=== PATIENT | female | born 1975 | race Two or more races ===

== ENCOUNTER 2022-02-21 00:22 | Emergency (ER) | payer OTHER ==
[~2022-02-21] VITALS: Ht 152.4 cm; Wt 84.4 kg
[~2022-02-21 00:22] MED LIST: CIPRO500 MG PO; HYOSCYAMINE0.125 M1 SL; PERCOCET 5/3251 TAB PO
[2022-02-21] MEDS ORDERED: ZESTRIL2.5 MG (00:35)
[2022-02-21] MEDS ORDERED: NORFLEX100MG PO (04:14)
[2022-02-21] MEDS ORDERED: DICLOFENAC POTA50 MG PO (04:14)
== END 2022-02-21 05:18 | disposition home or self-care (01) ==
LOC: ER 00:22
DX: E03.9 Hypothyroidism, unspecified (principal); R07.89 Other chest pain; R51.9 Headache, unspecified; Z20.828 Contact with and (suspected) exposure to other viral communicable diseases

== ENCOUNTER 2022-12-02 05:19 | Emergency (ER) | payer OTHER ==
[~2022-12-02] VITALS: Ht 167.6 cm; Wt 83.0 kg
[~2022-12-02 05:19] MED LIST changes: +DICLOFENAC POTA50 MG PO; +NORFLEX100MG PO; +ZESTRIL2.5 MG
[2022-12-02] MEDS ORDERED: HYDRODIURIL12.5 MG PO (05:38)
== END 2022-12-02 09:30 | disposition home or self-care (01) ==
LOC: ER 05:19
DX: R10.84 Generalized abdominal pain (principal)